=== PATIENT | female | born 1985 | race African-American/Black ===

== ENCOUNTER 2016-10-29 17:51 | Emergency (ER) | payer OTHER ==
[~2016-10-29] VITALS: Ht 160 cm; Wt 93.0 kg
[2016-10-29 18:09] VITALS: BP 137/88
--- NOTE | 2016-10-29 18:12 | PHYS DOC ---
Past Medical History Past Medical History: Asthma Past Surgical History: Smoking: Cigarettes Alcohol Use: None Drug Use: None Adult General Chief Complaint Chief Complaint: ASTHMA HPI HPI Patient is a 31 year old female presents emergency department stating that she' s been having problems with her asthma for the last 2 days. She's been using an albuterol inhaler as well as an albuterol nebulizer machine without any relief. She states that she's been coughing with nonproductive cough causing her to have a headache on the right side of her head. She also states that she has been coughing so hard that she peas her pants. She denies fever, chills or any nausea vomiting. Review of Systems Review of Systems Constitutional: Denies fever or chills [] Eyes: Denies change in visual acuity, redness, or eye pain [] HENT: Denies nasal congestion or sore throat [] Respiratory: cough and shortness of breath [] Cardiovascular: No additional information not addressed in HPI [] GI: Denies abdominal pain, nausea, vomiting, bloody stools or diarrhea [] : Denies dysuria or hematuria [] Musculoskeletal: Denies back pain or joint pain [] Integument: Denies rash or skin lesions [] Neurologic: Denies headache, focal weakness or sensory changes [] Current Medications Current Medications Current Medications Medications (Trade) Dose Ordered Sig/Harleen Start Time Stop Time Status Last Admin Dose Admin Albuterol/ Ipratropium (Duoneb) 3 ml 1X ONCE 10/29/16 18:15 10/29/16 18:16 DC 10/29/16 18:33 3 ML Ondansetron HCl (Zofran Odt) 4 mg 1X ONCE 10/29/16 19:15 10/29/16 19:16 DC 10/29/16 19:10 4 MG Prednisone (Prednisone) 40 mg 1X ONCE 10/29/16 18:15 10/29/16 18:16 DC 10/29/16 18:23 40 MG Allergies Allergies Allergies Coded Allergies Type Severity Reaction Last Updated Verified acetaminophen Allergy Mild Rash 09/10/15 Yes hydrocodone Allergy Mild Rash 09/10/15 Yes Physical Exam Physical Exam Constitutional: Well developed, well nourished, no acute distress, non-toxic appearance. [] HENT: Normocephalic, atraumatic, bilateral external ears normal, oropharynx moist, no oral exudates, nose normal. Vital tympanic membranes appear to be normal. Bilateral tonsils appear to be enlarged with no exudate noted. No uvula deviation noted. Eyes: PERRLA, EOMI, conjunctiva normal, no discharge. [] Neck: Normal range of motion, no tenderness, supple, no stridor. [] Cardiovascular:Heart rate regular rhythm, no murmur [] Lungs & Thorax: Bilateral breath sounds decreased bilaterally Skin: Warm, dry, no erythema, no rash. [] Back: No tenderness Extremities: No tenderness, no cyanosis, no clubbing, ROM intact, no edema. [] Neurologic: Alert and oriented X 3, normal motor function, normal sensory function, no focal deficits noted. [] Psychologic: Affect normal, judgement normal, mood normal. [] Current Patient Data Vital Signs Vital Signs Date Time Temp Pulse Resp B/P Pulse Ox O2 Delivery O2 Flow Rate FiO2 10/29/16 18:33 Room Air 10/29/16 18:09 98.2 85 18 97 98.2 EKG EKG [] Radiology/Procedures Radiology/Procedures [] Course & Med Decision Making Course & Med Decision Making Pertinent Labs and Imaging studies reviewed. (See chart for details) She was provided with a respiratory treatment which she states that she is feeling much better she still continues to have a cough in which she has having the right head pain and discomfort. Prior to discharge patient had one large emesis. Patient was provided zofran with a PO challenge Patient will be discharged home in stable condition signs and symptoms to return back to emergency department as been provided. Patient will also be provided with a doesn't at home to help open up the airways. She'll be placed on Augmentin as well. Patient agrees with discharge instructions treatment regimens and follow-up recommendations. Dragon Disclaimer Dragon Disclaimer This electronic medical record was generated, in whole or in part, using a voice recognition dictation system. Departure Departure Impression: Primary Impression: Acute asthma exacerbation Disposition: HOME, SELF-CARE Condition: STABLE Referrals: NO PCP (PCP) Patient Instructions: Asthma, Adult, [id number] Additional Instructions: Activity as tolerated. Medication as prescribed. Tylenol or ibuprofen for pain and discomfort. Follow-up with primary care physician next 3-5 days. Return back to emergency prior signs and symptoms of become worse. Scripts Amoxicillin 500 Mg Capsule1 Cap PO BID #20 CAP Prov:OXANA FOWLER APRN 10/29/16 Albuterol Sulfate (Albuterol Sulfate Conc Neb Soln)2.5 Mg/0.5 Ml Vial.neb1 Vial NEB Q6HRS #120 VIAL Ref 0 Prov:OXANA FOWLER APRN 10/29/16 Prednisone 20 Mg Llxrue15 Mg PO DAILY #10 TAB Prov:OXANA FOWLER APRN 10/29/16 Albuterol Sulfate (Proair Hfa Inhaler)8.5 Gm Hfa.aer.ad1 Puff INH PRN Q6HRS PRN SHORTNESS OF BREATH #1 INHALER Prov:OXANA FOWLER APRN 10/29/16 OXANA FOWLER APRN Oct 29, 2016 18:12
[2016-10-29] MEDS ORDERED: IPRATRPIUM/ALBUTEROL 0.5/2.5MG 3 ML NEBU. NEB ONE (18:15)
[2016-10-29] MEDS ORDERED: predniSONE 20 MG TABLET PO ONE (18:15)
[2016-10-29] MEDS ORDERED: ALBU2.5V14 NEB (19:02)
[2016-10-29] MEDS ORDERED: AMOX500C PO (19:02)
[2016-10-29] MEDS ORDERED: PROAIR HFA8.5 GM INH (19:02)
[2016-10-29] MEDS ORDERED: PRED20TA PO (19:02)
[2016-10-29] MEDS ORDERED: ONDANSETRON ODT 4 MG TAB.RAPDIS. PO ONE (19:15)
== END 2016-10-29 19:43 | disposition home or self-care (01) ==
LOC: ER 17:51
DX: J45.901 Unspecified asthma with (acute) exacerbation (principal); F17.210 Nicotine dependence, cigarettes, uncomplicated; Z88.5 Allergy status to narcotic agent; Z88.6 Allergy status to analgesic agent
CPT/HCPCS: 94250; 94640; 99283; J7512; J7620; Q0162